=== PATIENT | female | born 1960 | race Caucasian/White ===

== ENCOUNTER 2016-09-13 02:49 | Observation (INO) | payer MEDICARE ==
[~2016-09-13] VITALS: Ht 175.3 cm; Wt 99.2 kg
--- NOTE | ~2016-09-13 | ST ---
Unit #: [id number] #: [id number] Patient: LAI HAYS [id number] [facility]. [address] [address] [id number] I MR#: [id number] NAME: LAI HAYS : 1960 SEX: F STUDY DATE/TIME: 09/14/2016 UNIT: C3A PCU ROOM: [facility] STUDY DESCRIPTION: Attending Physician: Augustin Mauricio M.D. Primary Care Physician: Primary Care Physician No CARDIOLOGY REPORT EXAM Lexiscan Cardiolite stress test FINDINGS Baseline EKG shows normal sinus rhythm with a rate of 75 beats per minute, otherwise normal. Lexiscan was injected immediately followed by Cardiolite. The patient had no complaints of chest pain, palpitations, or dizziness. EKG during the Lexiscan showed no ST-T wave abnormalities. No arrhythmias were seen. Maximum blood pressure response was 150/86 mmHg which was at the end of recovery. Baseline blood pressure 141/76 mmHg. Please correlate these results with the nuclear images. Dictated by... Mic Duong/alexander TD: 09/14/2016 15:51 JOB #: [id number] CARDIOLOGY REPORT Page 1 of 1 X Hang Valentino APRN CARDIOLOGY REPORT
--- NOTE | ~2016-09-13 | EKG ---
PATIENT: LAI HAYS UNIT #: [id number] Ventricular Rate: 61 BPM Atrial Rate: 61 BPM P-R Interval: 166 ms QRS Duration: 76 ms Q-T Interval: 420 ms QTC Calculation(Bezet): 422 ms P [place]: 69 degrees Calculated R [place]: 16 degrees Calculated T [place]: 31 degrees Diagnosis Line: Normal sinus rhythm Diagnosis Line: Normal ECG Diagnosis Line: No previous ECGs available Diagnosis Line: Confirmed by MILLA CABRAL MD ([id number]) on Diagnosis Line: 09/13/2016 2:02:27 PM INTERPRETING MD: MISHA DENNIS
--- NOTE | ~2016-09-13 | HP ---
Unit #: [id number] #: [id number] Patient: LAI HAYS [id number] [facility] [address]. [place], [place] [address] [id number] I MR#: [id number] NAME: LAI HASY ROOM: 302 Age: 56 Sex: F Admission Date: 09/13/2016 : 1960 Attending Physician: Augustin Mauricio M.D. Primary Care Physician: No Primary Care Physician HISTORY AND PHYSICAL HISTORY OF PRESENT ILLNESS This is a 56-year-old female who presented to [facility] with reports of intermittent left chest pressure tightness rated 8/10 at its worse on the pain scale with accompanying right face and right tongue numbness and throat tightness. She additionally reports nausea but denies diaphoresis or dizziness with the pain. She states she has been having this pain since she was diagnosed with bilateral PEs last week. She was originally diagnosed with PEs back in June 2016 and went home from the hospital on Xarelto. She states she did not understand that she was supposed to refill her prescription and had quit taking her Xarelto. So, two weeks ago, she went back to the hospital with shortness of breath and right axillary pains where she was informed that she still had bilateral PEs. Her chest pressure and tightness has been ongoing intermittently since then. She states there is an almost constant pressure and tightness which, at times, increases in intensity and is accompanied with face and tongue numbness when it is at its worse. She denies a prior cardiac history. She denies hypertension or diabetes. She states she did have hyperlipidemia in the past and was put on medication but was told she did not need it anymore so she does not take it. She is a half pack per day smoker x40 years. Her EKG in the ER at [facility] showed normal sinus rhythm with nonspecific T wave abnormalities. Her troponins were less than 0.01 and less than 0.03. She was transferred to [facility] for further workup and evaluation. In addition, she reports she has episodes of heart palpitations that last anywhere from 30 minutes to one hour and are accompanied with lightheadedness. These occur about once a month. She has never been evaluated for her palpitations. PAST MEDICAL HISTORY 1. Bilateral pulmonary embolism on Xarelto x2 weeks. 2. Hyperlipidemia. 3. Tobacco abuse, half pack per day smoker x40 years. 4. Nephrolithiasis. 5. Chronic lower back pain. 6. Anxiety. PAST SURGICAL HISTORY She denies any surgeries. SOCIAL HISTORY She lives with her spouse. She smokes half pack per day x40 years. She denies alcohol use or illicit drug use. FAMILY HISTORY Her mother at the age of 73 from a AL. Unit #: [id number] #: [id number] Patient: LAI HAYS ALLERGIES Compazine. HOME MEDICATIONS 1. Trazodone 100 mg p.o. at bedtime. 2. Celexa daily. 3. Prilosec 40 mg p.o. twice a day. 4. Xarelto 15 mg p.o. twice a day. 5. BuSpar 10 mg p.o. three times a day. REVIEW OF SYSTEMS Positive for left face and tongue numbness, positive throat tightness, positive right axilla sharp pains, positive mid sternal and left chest heaviness and pressure worse with deep breaths, positive for intermittent nausea, anxiety and palpitations. Otherwise, negative except for what was stated in the HPI. She also reports chronic lower back pain with right leg radiculopathy. PHYSICAL EXAMINATION GENERAL APPEARANCE: This is a pleasant, 56-year-old female resting in bed in no acute distress. VITAL SIGNS: Temp 97.5. Heart rate 64. Respiratory rate 18. Blood pressure 121/70. Height 101.4 kg. Weight 69 inches. HEENT: Head is atraumatic and normocephalic. Pupils are equal and round. Mucous membranes are moist. NECK: Supple. Trachea is midline. Negative for JVD. LUNGS: Clear to auscultation. Nonlabored respirations. CARDIOVASCULAR: S1, S2. Regular rate and rhythm. No significant murmurs, rubs or gallops. ABDOMEN: Soft, nontender, nondistended. EXTREMITIES: Pulses are palpable. No pedal edema. No cyanosis. NEUROLOGIC: Alert and oriented x3. Moves all extremities equally and follows commands without difficulty. DIAGNOSTIC STUDIES LABORATORY: Sodium 136, potassium 4.3, chloride 101, BUN 18, creatinine 0.8, glucose 104. Hemoglobin 10.9, hematocrit 34.2, WBC count 9.3, platelets 209. TSH 1.56. Troponin less than 0.03. Lipid profile: Cholesterol 199, triglycerides 89, LDL 126, HDL 55. IMAGING: A CT of the head done at [facility] showed no acute findings and a chest x-ray done at [facility] showed no active disease. ASSESSMENT 1. Chest pain. 2. Bilateral pulmonary embolism. 3. History of palpitations. 4. Anxiety. PLAN 1. This is a 56-year-old female with recent diagnosis of ongoing bilateral pulmonary embolisms who presents with frequent chest pains worse with deep breaths. At times, the pain is accompanied with nausea and left face and tongue numbness as well as tightness in her throat. Her ischemic risk factors are family history, tobacco abuse and hyperlipidemia. We will plan to do a [employer] Cardiolite stress Unit #: [id number] #: [id number] Patient: LAI HAYS test in the a.m. 2. We will obtain the results of her CTA of her chest done at outside hospital to confirm and evaluate her bilateral PEs. 3. Check an echocardiogram and rule out right ventricular strain. 4. Check her hemoglobin A1C. 5. Add statin and aspirin. 6. Hold Xarelto. We will give Lovenox for her PE. 7. Regular diet and NPO after midnight for stress test in the a.m. 8. For her palpitations, we will observe her rhythm on the monitor. We could consider Holter monitors as outpatient. 1. Dictated by Sol Chavarria APRN for Kathie Brunson/namita TD: 09/13/2016 16:32 JOB #: [id number] HISTORY AND PHYSICAL Page 1 of 1 X X HISTORY AND PHYSICAL
--- NOTE | ~2016-09-13 | TH ---
Unit #: [id number] #: [id number] Patient: LAI HAYS [id number] [facility]. [address] [place], [place] [address] [id number] I MR#: [id number] NAME: LAI HAYS : 1960 SEX: F STUDY DATE/TIME: UNIT: C3A PCU ROOM: 302 STUDY DESCRIPTION: Attending Physician: Augustin Mauricio M.D. CARDIOLOGY REPORT EXAM Nuclear study. DESCRIPTION This 56-year-old patient received 0.4 mg of Lexiscan intravenously followed by 34.9 mCi of technetium 99m Cardiolite, and images were obtained according to the standard SPECT protocol. For rest images, 11.48 mCi of Cardiolite was injected. Images were reviewed in both phases. FINDINGS Overall study quality is excellent. LV cavity size is normal in both images. There is no lung activity. RV is normal. Rotating raw data showed no significant artifact soft tissue attenuation, or GI uptake. Review of the SPECT images showed normal homogeneous radiotracer concentration throughout the myocardium in both the stress and rest images. Gated images showed normal LV wall thickening and wall motion with an estimated LV ejection fraction of 74%. IMPRESSION 1. Myocardial perfusion imaging is normal. 2. No evidence of ischemia or infarct. 3. Normal left ventricle dimensions. 4. Normal systolic left ventricular function with an estimated left ventricular ejection fraction of 74%. 1. Dictated by... Kathie Brunson TD: 09/14/2016 17:16 JOB #: [id number] CARDIOLOGY REPORT Page 1 of 1 X Ted Flowers MD CARDIOLOGY REPORT
--- NOTE | ~2016-09-13 | DS ---
Unit #: [id number] #: [id number] Patient: LAI HAYS [id number] [facility] [address]. [place], [place] [address] [id number] I MR#: [id number] NAME: LAI HAYS ROOM: 302 Age: 56 Sex: F Admission Date: 09/13/2016 : 1960 Discharge Date: 09/14/2016 Attending Physician: Augustin Mauricio M.D. Primary Care Physician: Primary Care Physician No DISCHARGE SUMMARY This is Dr. Tamiko Chavarria, HEALTH EDITOR dictating for Dr. Flowers. DISCHARGE DIAGNOSES 1. Persistent atypical chest pain. 2. History of bilateral pulmonary embolism, on anticoagulation. 3. Left ventricular ejection fraction 55% with diastolic dysfunction. 4. Cardiolite Lexiscan stress test negative for ischemia. DISCHARGE MEDICATIONS 1. Xarelto 15 mg p.o. twice a day for 21 days, then 20 mg p.o. daily for at least 6 months. 2. Celexa 20 mg p.o. once a day. 3. Trazodone 100 mg p.o. at bedtime. 4. BuSpar 10 mg p.o. three times a day. 5. Prilosec 40 mg p.o. twice a day. 6. Saphris 10 mg p.o. at bedtime. HOSPITAL COURSE This is a 56-year-old female who presented to [facility] with reports of intermittent left chest pressure, tightness, and accompanying right face and right tongue numbness as well as throat tightness. She states she has been having pain since she was diagnosed with bilateral PE last week. The pain increases in intensity intermittently. It is worsened with deep breaths. She denied any prior cardiac history or history of hypertension or diabetes. She had some hyperlipidemia in the past, but was not on medications. Her EKG showed no ischemic changes. Her troponins were negative. She was transferred to [facility] for further workup and evaluation. Today, she underwent Lexiscan Cardiolite stress test. She said she was unable to an exercise stress test due to chronic lower back pain. The Lexiscan stress test was negative for ischemia per Dr. Flowers. She is currently stable with no increase in chest discomfort. No further face or tongue numbness. She will be discharged home. She is to continue her current anticoagulation of Xarelto. She was instructed to refill her prescription when she finishes this. She will need at least 6 months of anticoagulation due to her PE. She was instructed on smoking cessation. She verbalizes understanding of this. She is to followup with her primary care doctor as per her priorly scheduled appointment. PHYSICAL EXAMINATION VITAL SIGNS: Temperature 98.2, heart rate 72, respiratory rate 16, and blood pressure 124/64. CHEST: Clear to auscultation. Nonlabored respirations. Unit #: [id number] #: [id number] Patient: LAI HAYS HEART: S1 and S2. Regular rate and rhythm. No murmurs, rubs, or clicks. ABDOMEN: Soft, nontender, and nondistended. Positive bowel sounds. EXTREMITIES: No leg edema. No cyanosis. DIAGNOSTIC STUDIES LABORATORY RESULTS: Glucose 104, BUN 18, creatinine 0.8, sodium 136, potassium 4.3, chloride 101, AST 16, ALT 12, alk phos 67. Troponin less than 0.03. Lipid profile; cholesterol 199, triglycerides 89, LDL 126, HDL 55. TSH 1.56. DISCHARGE INSTRUCTIONS 1. The patient will be discharged to home today. 2. The patient is to follow up with her primary care doctor as previously scheduled. 3. Continue Xarelto as ordered. 4. Instructed on smoking cessation. Dictated by... Sol Chavarria APRN for Ted Flowers M.D. MAYURI/amelie TD: 09/17/2016 12:35 JOB #: [id number] DISCHARGE SUMMARY Page 1 of 1 X X DISCHARGE SUMMARY
[2016-09-13] MEDS ORDERED: TRAZODONE HCL100 MG PO (04:00)
[2016-09-13] MEDS ORDERED: CITALOPRAM HBR40 MG (04:01)
[2016-09-13] MEDS ORDERED: PRILOSEC PO (04:02)
[2016-09-13] MEDS ORDERED: BUSPIRONE HCL10 MG PO ×2 (04:04→05:20)
[2016-09-13] MEDS ORDERED: XARELTO15 MG PO (04:05)
[2016-09-13] MEDS ORDERED: SAPHRIS10 MG PO ×3 (04:05→05:25)
[2016-09-13 05:46] LABS: HEMATOCRIT 34.2 % (35.0-45.0); HEMOGLOBIN 10.9 gm/dL (12.0-16.0); MEAN CELL VOLUME 82.2 FL (83-96); MEAN CORPUSCULAR HEMOGLOBIN 26.3 PG (28-34); MEAN PLATELET VOLUME 9.4 FL (6.5-11.5); RED BLOOD COUNT 4.16 X10e (3.90-5.30); RED CELL DISTRIBUTION WIDTH 16.5 % (11.0-15.5); WHITE BLOOD COUNT 9.3 X10e3 (4.0-10.5)
[2016-09-13 07:18] LABS: ALBUMIN SERUM 3.6 g/dL (3.5-5.0); BILIRUBIN,TOTAL 0.4 mg/dL (0.2-2.0); BUN/CREATININE RATIO 22.5; CREATININE SERUM 0.8 mg/dL (0.6-1.4); GLOM FILT RATE Estimated 81.9 mL/min (>60); POTASSIUM 4.3 mmol/L (3.5-5.1); PROTEIN TOTAL SERUM 6.1 g/dL (6.0-8.3)
[2016-09-13 07:39] LABS: %MB 2.8 % (0.0-4.0); MB 2.1 ng/ml
== END 2016-09-14 16:25 | disposition home or self-care (01) ==
LOC: C3A PCU 02:50
PROVIDERS: Internal Medicine Interventional Cardiology
DX: R07.89 Other chest pain (principal); I51.7 Cardiomegaly; I34.0 Nonrheumatic mitral (valve) insufficiency; I51.89 Other ill-defined heart diseases; I26.99 Other pulmonary embolism without acute cor pulmonale; Z79.01 Long term (current) use of anticoagulants; Z79.899 Other long term (current) drug therapy; F17.200 Nicotine dependence, unspecified, uncomplicated; F41.9 Anxiety disorder, unspecified; G89.29 Other chronic pain; M54.5 Low back pain; Z82.49 Family history of ischemic heart disease and other diseases of the circulatory system; Z88.8 Allergy status to other drugs, medicaments and biological substances
CPT/HCPCS: 78452; 80053; 80061; 82550; 82553; 83036; 84443; 84484; 85027; 85379; 93005; 93017; 93306; 96372; 96374; 96375; 96376; A9500; G0378; J1650; J2270; J2405; J2785